=== PATIENT | male | born 1990 | race Caucasian/White ===

== ENCOUNTER 2023-07-26 16:33 | Emergency (ER) | payer OTHER ==
[~2023-07-26] VITALS: Ht 175.3 cm; Wt 95.2 kg
[~2023-07-26 16:33] MED LIST: CODACE30 PO; RXCODACET PO
[2023-07-26 16:39] VITALS: BP 213/115
[2023-07-26] MEDS ORDERED: LOSA25 PO (17:13)
== END 2023-07-26 17:32 | disposition home or self-care (01) ==
LOC: ER 16:33
DX: I10 Essential (primary) hypertension (principal); S93.401A Sprain of unspecified ligament of right ankle, initial encounter; W11.XXXA Fall on and from ladder, initial encounter
CPT/HCPCS: 73610; 99283-25

== ENCOUNTER → 2024-11-12 | Outpatient (CLI) | payer OTHER ==
[~2024-11-12] MED LIST changes: +LOSA25 PO
== END | disposition home or self-care (01) ==
LOC: LAB 12:51 → LAB SHORT 12:51
DX: L02.01 Cutaneous abscess of face (principal)
CPT/HCPCS: 87070; 87075; 87205